=== PATIENT | female | born 1960 | race Caucasian/White ===

== ENCOUNTER 2017-07-12 12:35 | Observation (INO) | payer MEDICARE, MEDICAID ==
[~2017-07-12 12:35] MED LIST: CLON0.1T PO
[2017-07-12] MEDS ORDERED: ONDANSETRON HCL 4 MG/2 ML VIAL IV PUSH PRN (14:45)
[2017-07-12] MEDS ORDERED: ACETAMINOPHEN/HYDROcodone 325 MG/7.5 MG TAB PO PRN (14:45)
[2017-07-12] MEDS ORDERED: ACETAMINOPHEN 500 MG CPLT PO PRN (14:45)
[2017-07-12] MEDS ORDERED: RESP: ALBUTEROL 2.5 MG/IPRATROPIUM 0.5 MG NEB (PRN) INH (14:45)
[2017-07-12] MEDS ORDERED: ALPRAZolam 0.25 MG TAB PO PRN (14:45)
[2017-07-12] MEDS ORDERED: cloNIDine HCL 0.1 MG TAB PO PRN (14:45)
--- NOTE | 2017-07-12 14:59 | HHI.HP ---
[facility] Primary Care Physician Maximo Wray MD Chief Complaint This is a 56-year-old female that presents to the ED in [place] to be evaluated for chest discomfort. Patient states she has had discomfort in the chest for 4 days. The first 3 days were intermittent lasting about 15 minutes. Associated shortness of breath and diaphoresis. No nausea. She states that the discomfort has been constantly there since yesterday. The discomfort radiates up into the neck and down her left arm. She is found that the discomfort in her arm is worsened with movement of the arm but it is improved when she holds the arm up on her chest. Denies any recent injuries. Eyes fevers or chills. She also claims of left-sided headache that she describes as an ache. Denies trauma. Denies visual changes. Denies numbness tingling or weakness in extremities. Review of Systems General: Patient denies fevers, chills, and recent travel. HEENT: Patient denies headache, sore throat, difficulty swallowing. Cardiovascular: Has the chest discomfort as mentioned above. Denies sensation of heart beating rapidly or irregularly. No syncope. She at times has been diaphoretic in the evening over the last 4 days. Respiratory: She has had intermittent shortness of breath. Denies inspirational chest discomfort. Denies coughing wheezing or hemoptysis. GI: Patient denies nausea, vomiting, diarrhea, abdominal pain, bloody stools. Musculoskeletal: Chronic low back pain. Left arm discomfort is worsened with movement. Patient denies joint pain or edema. Denies calf pain or edema. Neurovascular: Patient denies numbness, tingling, weakness in extremities. Planes of left-sided headache, describes it as an ache. Denies trauma. Denies visual changes. Endocrine: Denies polyuria and polydipsia. Hematologic: Denies easy bruising. Skin: Denies rash or itching. Past Family Social History Allergies: Coded Allergies: Tetracyclines (Verified Allergy, Unknown, GI UPSET, RASH, 07/12/17) erythromycin base (Verified Allergy, Unknown, GI UPSET, RASH, 07/12/17) morphine (Verified Allergy, Unknown, GI UPSET, RASH, 07/12/17) Past Medical History Hypertension, hyperlipidemia however she has not taken medication at this time. PTSD. Tobacco abuse. Chronic low back pain. Hypothyroidism and patient is not taking medication at this time. Denies diabetes and CAD. Past Surgical History Hysterectomy and appendectomy. Reported Medications Reported Meds & Active Scripts Active Reported Clonidine (Clonidine HCl) 0.1 Mg Tab 0.1 Mg PO DAILY PRN Family History Denies family history of CAD. Social History Patient has been smoking one third pack of cigarettes daily for the past 6 months but prior to that she smoked about a half pack a day for 35 years. Denies alcohol or illicit drug use. States she is disabled secondary to PTSD. Physical Exam Physical Exam GENERAL: This is a well-nourished, well-developed patient, in no apparent distress. Patient speaks in clear complete sentences. Patient is pleasant. HEENT: Head is atraumatic and normocephalic. Neck is supple without lymphadenopathy and trachea is midline. No JVD or carotid bruits. CARDIOVASCULAR: Regular rate and rhythm without murmurs, gallops, or rubs. RESPIRATORY: Clear to auscultation. Breath sounds equal bilaterally. No wheezes , rales, or rhonchi. Chest wall is tender, arm and chest discomfort is also worsened with range of motion of her left arm. No use of accessory muscles. GASTROINTESTINAL: Abdomen is nontender, nondistended. Abdomen soft. No obvious pulsatile mass or bruit. No CVA tenderness. Strong femoral pulses bilaterally. Normal bowel sounds in all quadrants. MUSCULOSKELETAL: Patient is moving upper and lower extremities freely however movement of the left arm does elicit more discomfort.. No calf tenderness or edema, no Homans sign. Strong pulses in upper and lower extremities. NEUROLOGICAL: Patient is alert and oriented. Cranial nerves 2-12 are grossly intact. No focal deficits and speech is clear. SKIN: No rash and turgor is normal. Imaging Chest x-ray reveals nothing acute. Course Initial EKG is sinus bradycardia rate of 50 with nonspecific anterolateral T- wave changes. Caprini VTE Risk Assessment Caprini VTE Risk Assessment: No/Low Risk (score <= 1) Caprini Risk Assessment Model Point Value = 1 Point Value = 2 Point Value = 3 Point Value = 5 Age 41-60 Minor surgery BMI > 25 kg/m2 Swollen legs Varicose veins or History of unexplained or recurrent spontaneous Oral contraceptives or hormone replacement Sepsis (< 1 month) Serious lung disease, including pneumonia (< 1 month) Abnormal pulmonary function Acute myocardial infarction Congestive heart failure (< 1 month) History of inflammatory bowel disease Medical patient at bed rest Age 61-74 Arthroscopic surgery Major open surgery (> 45 min) Laparoscopic surgery (> 45 min) Malignancy Confined to bed (> 72 hours) Immobilizing plaster cast Central venous access Age >= 75 History of VTE Family history of VTE Factor V Leiden Prothrombin [id number] Lupus anticoagulant Anticardiolipin antibodies Elevated serum homocysteine Heparin-induced thrombocytopenia Other congenital or acquired thrombophilia Stroke (< 1 month) Elective arthroplasty Hip, pelvis, or leg fracture Acute spinal cord injury (< 1 month) Prophylaxis Regimen Total Risk Factor Score Risk Level Prophylaxis Regimen 0-1 Low Early ambulation 2 Moderate Order ONE of the following: *Sequential Compression Device (SCD) *Heparin 5000 units SQ BID 3-4 Higher Order ONE of the following medications: *Heparin 5000 units SQ TID *Enoxaparin/Lovenox 40 mg SQ daily (WT < 150 kg, CrCl > 30 mL/min) *Enoxaparin/Lovenox 30 mg SQ daily (WT < 150 kg, CrCl > 10-29 mL/min) *Enoxaparin/Lovenox 30 mg SQ BID (WT < 150 kg, CrCl > 30 mL/min) AND/OR *Sequential Compression Device (SCD) 5 or more Highest Order ONE of the following medications: *Heparin 5000 units SQ TID (Preferred with Epidurals) *Enoxaparin/Lovenox 40 mg SQ daily (WT < 150 kg, CrCl > 30 mL/min) *Enoxaparin/Lovenox 30 mg SQ daily (WT < 150 kg, CrCl > 10-29 mL/min) *Enoxaparin/Lovenox 30 mg SQ BID (WT < 150 kg, CrCl > 30 mL/min) AND *Sequential Compression Device (SCD) Assessment and Plan Assessment and Plan * Chest pain: Her symptoms appear atypical however she has multiple risk factors for CAD. She will have serial cardiac enzymes and EKGs for ruling out purposes. Her initial labs included a CPK that was elevated as well as a CK-MB however percent were normal as well as the troponin. She will be seen by Dr. Breen of cardiology in the chest pain center and likely have a Lexiscan in the morning if she rules out. Patient will be discharged home if her stress test is nonischemic with instructions to follow-up with PCP and to return to the ED for interval issues. * Hypertension: We will continue to monitor. Likely be starting patient on either an arm or amlodipine. * Hyperlipidemia: Patient states she stopped taking whatever cholesterol medicine that she was taking quite a long time ago. Does not recall the medication name but states that it did not agree with her. She does not recall what it did to her. She will need to discuss this with her PCP to further treat her hyperlipidemia. * Hypothyroidism: Patient admits to not taking thyroid medication. We will get a TSH. She will need to further discuss this with her PCP. * Tobacco abuse: Patient has been counseled on the importance of smoking cessation. Patient is stable at this time. She is agreeable to this plan. Geraldo Cobos Jul 12, 2017 14:59
[2017-07-12 15:35] VITALS: BP 141/72; PULSE 42; RESP 18; TEMP 98.1; O2SAT 97
[2017-07-12 15:59] LABS: TROPONIN I LESS THAN 0.02 NG/ML (0.02-0.05)
[2017-07-12] MEDS: PANTOPRAZOLE SOD 40 MG DELAYED RELEASE TAB PO SCH (16:06)
[2017-07-12] MEDS: amLODIPine BESYLATE 5 MG TAB PO SCH (16:06)
[2017-07-12 17:54] VITALS: PULSE 43
[2017-07-12 18:36] LABS: TROPONIN I LESS THAN 0.02 NG/ML (0.02-0.05)
[2017-07-12 19:31] VITALS: BP 103/58; PULSE 48; RESP 16; TEMP 97.9; O2SAT 100
[2017-07-12 20:00] VITALS: PULSE 48
[2017-07-12 21:42] VITALS: O2SAT 98
[2017-07-12 22:48] VITALS: BP 109/70; PULSE 45; PULSE 51; RESP 16; TEMP 97.5; O2SAT 96
[2017-07-13] VITALS: PULSE 42
[2017-07-13 04:00] VITALS: PULSE 48
[2017-07-13 04:25] VITALS: BP 125/70; PULSE 45; RESP 16; TEMP 97.8; O2SAT 100
[2017-07-13 07:31] VITALS: PULSE 52
[2017-07-13 08:07] VITALS: BP 147/80; PULSE 47; RESP 18; TEMP 97.6; O2SAT 98
[2017-07-13] MEDS: amLODIPine BESYLATE 5 MG TAB PO SCH (08:50)
[2017-07-13] MEDS: PANTOPRAZOLE SOD 40 MG DELAYED RELEASE TAB PO SCH (08:50)
[2017-07-13] MEDS ORDERED: ASPIRIN 325 MG TAB PO SCH (09:00)
[2017-07-13] MEDS ORDERED: REGADENOSON INJ 0.4 MG/5 ML SYR ONE (09:54)
--- NOTE | 2017-07-13 10:44 | PD.CARD.PN ---
Subjective Subjective Remarks No complaints, requesting to sign out AMA, does not wish to continue with plan of care completing lexiscan Objective Medications Current Medications Medications (Trade) Dose Ordered Sig/Emy Route Start Time Stop Time Status Last Admin (Tylenol) 500 mg Q4H PRN PO 07/12/17 14:45 ([place]ison 7.5-325 Mg) 1 tab Q4H PRN PO 07/12/17 14:45 07/12/17 16:06 (Zofran Inj) 4 mg Q6H PRN IV PUSH 07/12/17 14:45 (Protonix) 40 mg DAILY PO 07/12/17 16:00 07/13/17 08:50 (Aspirin) 325 mg DAILY PO 07/13/17 09:00 07/13/17 08:50 (Xanax) 0.25 mg Q8H PRN PO 07/12/17 14:45 (Duoneb Neb) 1 ampule Q4HR NEB PRN INH 07/12/17 14:45 (Catapres) 0.1 mg Q4H PRN PO 07/12/17 14:45 (Norvasc) 5 mg DAILY PO 07/12/17 15:45 07/13/17 08:50 Vital Signs / I&O Vital Signs Date Time Temp Pulse Resp B/P (MAP) Pulse Ox O2 Delivery O2 Flow Rate FiO2 07/13/17 08:07 97.6 47 18 147/80 (102) 98 07/13/17 07:31 52 07/13/17 04:25 97.8 45 16 125/70 (88) 100 07/13/17 04:00 48 07/13/17 00:00 42 07/12/17 22:48 97.5 51 16 109/70 (83) 96 07/12/17 21:42 98 07/12/17 20:00 48 07/12/17 19:31 97.9 48 16 103/58 (73) 100 07/12/17 17:54 43 07/12/17 15:55 21 07/12/17 15:35 98.1 42 18 141/72 (95) 97 Laboratory Laboratory Tests Test 07/12/17 15:20 07/12/17 17:45 Total Creatine Kinase 572 U/L 586 U/L Creatine Kinase MB 3.1 NG/ML 3.2 NG/ML Creatine Kinase MB % 0.5 % 0.5 % Troponin I LESS THAN 0.02 NG/ML LESS THAN 0.02 NG/ML Thyroid Stimulating Hormone 3rd Gen 82.700 uIU/ML Assessment and Plan Assessment and Plan Notified by radiologist appliance technician patient refusing to complete second part of Lexiscan. Spoke with patient in length regarding any concerns she may have regarding test. States "I just want to go home and I want something warm to drink." Denies any worry or anxiety around completing exam. Made aware she would be signing out against medical advice. Verbalized understanding and states she will return to ER if needed. Samantha Aponte Jul 13, 2017 10:44
--- NOTE | 2017-07-13 14:17 | EKG ---
Date Performed: 07/12/2017 Time Performed: 15:49:02 PTAGE: 56 years EKG: SINUS BRADYCARDIA MODERATE T-WAVE ABNORMALITY, CONSIDER ANTEROLATERAL ISCHEMIA MODERATE T-W AVE ABNORMALITY, CONSIDER INFERIOR ISCHEMIA ABNORMAL ECG Since PREVIOUS TRACING , no significant change noted DOCTOR: Paul Breen Interpretating Date/Time 07/13/2017 14:15:53
--- NOTE | 2017-07-13 14:17 | EKG ---
Date Performed: 07/12/2017 Time Performed: 17:52:34 PTAGE: 56 years EKG: SINUS BRADYCARDIA MODERATE T-WAVE ABNORMALITY, CONSIDER ANTEROLATERAL ISCHEMIA MODERATE T-W AVE ABNORMALITY, CONSIDER INFERIOR ISCHEMIA ABNORMAL ECG PREVIOUS TRACING : 07/12/2017 15.49 Since previous tracing, no significant change noted DOCTOR: Paul Breen Interpretating Date/Time 07/13/2017 14:15:19
== END 2017-07-13 11:04 | disposition left against medical advice (07) ==
LOC: NEDDLT 12:35 → UNDOADMOB 14:38 → NEPGCP 14:38 → UNDODISOB 07-13 11:04
DX: R07.89 Other chest pain (principal); R61 Generalized hyperhidrosis; R06.02 Shortness of breath; R51 Headache; M54.5 Low back pain; G89.29 Other chronic pain; I10 Essential (primary) hypertension; E78.5 Hyperlipidemia, unspecified; E03.9 Hypothyroidism, unspecified; F43.10 Post-traumatic stress disorder, unspecified; F17.210 Nicotine dependence, cigarettes, uncomplicated; R94.31 Abnormal electrocardiogram [ECG] [EKG]
CPT/HCPCS: 70450; 71046; 80053; 82550; 82552; 83735; 84443; 84484; 85025; 85610; 85730; 93005; 96374; 99285; G0378; J2785